=== PATIENT | male | born 1990 ===

== ENCOUNTER 2017-05-12 09:13 | Emergency (ER) | payer SELFPAY ==
[~2017-05-12 09:13] MED LIST: BACT800T5 PO; DOXY100C PO
[2017-05-12 09:17] VITALS: BP 111/57; PULSE 136; RESP 20; TEMP 97.7; O2SAT 95
[2017-05-12] MEDS ORDERED: SODIUM CHLOR 0.9% 1000 ML INJ 1,000 ML IV SCH (09:24)
[2017-05-12] MEDS ORDERED: methylPREDNISolone SOD SUCC 125 MG/2 ML VIAL IM ONE (09:30)
[2017-05-12] MEDS ORDERED: FAMOTIDINE 20 MG/2 ML VIAL IV PUSH ONE (09:30)
[2017-05-12] MEDS ORDERED: EPINEPHrine HCL (1:1000) 1 MG/ML VIAL IM ONE (09:30)
[2017-05-12] MEDS ORDERED: SODIUM CHLORIDE 0.9% FLUSH 10 ML FLUSH IV FLUSH PRN (09:30)
[2017-05-12] MEDS ORDERED: diphenhydrAMINE HCL 50 MG/ML VIAL IVP ONE (09:30)
[2017-05-12 09:35] VITALS: O2SAT 100
--- NOTE | 2017-05-12 09:40 | PD ---
HPI Chief Complaint: Allergic/Adverse Reaction Time Seen by Provider: 09:22 Travel History International Travel<30 days: No Contact w/Intl Traveler<30days: No Traveled to known affect area: No History of Present Illness HPI 26-year-old male presents emergency department with acute allergic reaction starting approximately 1 hour prior to arrival here. Patient states he started doxycycline 2 days ago for a chlamydial infection, but feels that this is not due to the medication but more likely a fruit smoothie that he had earlier this morning. He has no history of specific allergies in the past but has had hives previously. Patient did take 2 Benadryl prior to arrival with some improvement according to the patient. Patient does have generalized itching and rash. PFSH Past Medical History Diminished Hearing: No Immunizations Current: No Social History Alcohol Use: Yes (SELDOM) Tobacco Use: Yes (4 CIGS A DAY) Substance Use: Yes (MARIJUANA DAILY) Allergies-Medications (Allergen,Severity, Reaction): Coded Allergies: No Known Allergies (Unverified , 05/09/17) Reported Meds & Prescriptions Reported Meds & Active Scripts Active Epinephrine Inj (Epinephrine) 0.15 Mg/0.3 Ml Inj 0.15 Mg IM DIRECTED Ranitidine (Ranitidine HCl) 150 Mg Tab 150 Mg PO BID Diphenhydramine (Diphenhydramine HCl) 25 Mg Cap 25 Mg PO Q6H PRN Prednisone (21) 10 mg tab Dose Pack (Prednisone) 10 Mg Pack 10 Mg PO DIRECTED Doxycycline Hyclate 100 Mg Cap 100 Mg PO BID 10 Days Physical Exam Narrative GENERAL: Patient appears somewhat anxious but is speaking in full sentences SKIN: Warm and dry. Patient is generalized erythematous rash without hives. HEAD: Atraumatic. Normocephalic. EYES: Pupils equal and round. No scleral icterus. No injection or drainage. ENT: No nasal bleeding or discharge. Mucous membranes pink and moist. NECK: Trachea midline. No JVD. CARDIOVASCULAR: Regular rate and rhythm. RESPIRATORY: No accessory muscle use. Clear to auscultation. Breath sounds equal bilaterally. GASTROINTESTINAL: Abdomen soft, non-tender, nondistended. Hepatic and splenic margins not palpable. MUSCULOSKELETAL: Extremities without clubbing, cyanosis, or edema. No obvious deformities. NEUROLOGICAL: Awake and alert. No obvious cranial nerve deficits. Motor grossly within normal limits. Five out of 5 muscle strength in the arms and legs. Normal speech. PSYCHIATRIC: Appropriate mood and affect; insight and judgment normal. Data Data Last Documented VS Vital Signs Date Time Temp Pulse Resp B/P (MAP) Pulse Ox O2 Delivery O2 Flow Rate FiO2 05/12/17 09:17 97.7 136 20 111/57 (75) 95 Orders Orders Basic Metabolic Panel (Bmp) (05/12/17 09:24) Complete Blood Count With Diff (05/12/17 09:24) Ecg Monitoring (05/12/17 09:24) Iv Access Insert/Monitor (05/12/17 09:24) Oximetry (05/12/17 09:24) Diphenhydramine Inj (Benadryl Inj) (05/12/17 09:30) Methylprednisolone So Succ Inj (Solumedr (05/12/17 09:30) Famotidine Inj (Pepcid Inj) (05/12/17 09:30) Sodium Chlor 0.9% 1000 Ml Inj (Ns 1000 M (05/12/17 09:24) Sodium Chloride 0.9% Flush (Ns Flush) (05/12/17 09:30) Epinephrine (1:1000) Inj (Adrenalin (1:1 (05/12/17 09:30) Azithromycin (Zithromax) (05/12/17 10:30) Labs Laboratory Tests Test 05/12/17 09:50 White Blood Count 9.4 TH/MM3 Red Blood Count 6.33 MIL/MM3 Hemoglobin 18.8 GM/DL Hematocrit 54.8 % Mean Corpuscular Volume 86.5 FL Mean Corpuscular Hemoglobin 29.6 PG Mean Corpuscular Hemoglobin Concent 34.3 % Red Cell Distribution Width 13.2 % Platelet Count 282 TH/MM3 Mean Platelet Volume 8.5 FL Neutrophils (%) (Auto) 49.3 % Lymphocytes (%) (Auto) 44.9 % Monocytes (%) (Auto) 5.0 % Eosinophils (%) (Auto) 0.5 % Basophils (%) (Auto) 0.3 % Neutrophils # (Auto) 4.7 TH/MM3 Lymphocytes # (Auto) 4.2 TH/MM3 Monocytes # (Auto) 0.5 TH/MM3 Eosinophils # (Auto) 0.1 TH/MM3 Basophils # (Auto) 0.0 TH/MM3 CBC Comment DIFF FINAL Differential Comment Blood Urea Nitrogen 17 MG/DL Creatinine 0.99 MG/DL Random Glucose 113 MG/DL Calcium Level 8.6 MG/DL Sodium Level 139 MEQ/L Potassium Level 4.1 MEQ/L Chloride Level 107 MEQ/L Carbon Dioxide Level 24.6 MEQ/L Anion Gap 7 MEQ/L Estimat Glomerular Filtration Rate 91 ML/MIN [facility] Medical Decision Making Medical Screen Exam Complete: Yes Emergency Medical Condition: Yes Differential Diagnosis Allergic reaction. Hives. History of chlamydia Narrative Course Patient is medically stable at time of exam. IV access is obtained, and the patient is given 50 mg diphenhydramine IV, 125 mg Solu-Medrol IV, and 40 mg Pepcid IV. CBC and BMP are ordered. After the above treatment, the patient is much improved. Epinephrine was not necessary. CBC showed no significant leukocytosis. BMP is unremarkable. Patient is to discontinue doxycycline. Patient is given 2 g of azithromycin instead. Patient will be continued on prednisone Dosepak as prescribed. Patient continued on ranitidine 150 mg twice daily for 2 weeks. Patient to continue diphenhydramine 25 mg every 6 hours. Patient is given an EpiPen to be used if symptoms worsen as directed. Patient to follow-up with local primary care physician and/or sleeping room cleaner to determine his allergy. Patient should return to emergency department immediately with worsening symptoms if necessary. Diagnosis Primary Impression: Allergic reaction Qualified Codes: T78.40XA - Allergy, unspecified, initial encounter Patient Instructions: Allergies (ED), Anaphylaxis (ED), Epinephrine (By injection), General Instructions, Prednisolone (By mouth) Departure Forms: Work Release Enter return to work date: May 13, 2017 Additional Instructions: Patient is to discontinue doxycycline. Patient is given 2 g of azithromycin instead. Patient will be continued on prednisone Dosepak as prescribed. Patient continued on ranitidine 150 mg twice daily for 2 weeks. Patient to continue diphenhydramine 25 mg every 6 hours. Patient is given an EpiPen to be used if symptoms worsen as directed. Patient to follow-up with local primary care physician and/or sleeping room cleaner to determine his allergy. Patient should return to emergency department immediately with worsening symptoms if necessary. Med/Other Pt SpecificInfo: Prescription(s) given Scripts Epinephrine Inj (Epinephrine Inj) 0.15 Mg/0.3 Ml Inj 0.15 MG IM DIRECTED for Allergic Reaction, #1 INJECTION 0 Refills Prov: Concetta Katz MD 05/12/17 Ranitidine (Ranitidine) 150 Mg Tab 150 MG PO BID for Heartburn Management, #30 TAB 0 Refills Prov: Concetta Katz MD 05/12/17 Diphenhydramine (Diphenhydramine) 25 Mg Cap 25 MG PO Q6H Y for ALLERGIES, #60 CAP 0 Refills Prov: Concetta Katz MD 05/12/17 Prednisone (21) 10 mg tab Dose Pack (Prednisone (21) 10 mg tab Dose Pack) 10 Mg Pack 10 MG PO DIRECTED for Inflammation, #1 DSPK 0 Refills Prov: Concetta Katz MD 05/12/17 Disposition: 01 DISCHARGE HOME Condition: Stable Sid William May 12, 2017 09:40
--- NOTE | 2017-05-12 09:43 | PD ---
Physical Exam Narrative I, Dr. Katz, have reviewed the advance practice practitioner's documentation and am in agreement, met with the patient face to face, made the diagnosis, and the medical decision making was done by me. *My assessment and Findings: Patient is a 26 year old male who comes in complaining of an allergic reaction. He says it started after eating a smoothie, but he is not exactly sure what was in it. He is also taking Doxycycline and is on day 2. He says he has itching, congestion and swelling of his lips. He took benadryl before coming in. Exam shows minimal swelling of the lips. There is no uvular swelling, lungs are CTA. Data Data Last Documented VS Vital Signs Date Time Temp Pulse Resp B/P (MAP) Pulse Ox O2 Delivery O2 Flow Rate FiO2 05/12/17 09:17 97.7 136 20 111/57 (75) 95 Orders Orders Basic Metabolic Panel (Bmp) (05/12/17 09:24) Complete Blood Count With Diff (05/12/17:24) Ecg Monitoring (05/12/17:24) Iv Access Insert/Monitor (05/12/17:24) Oximetry (05/12/17:24) Diphenhydramine Inj (Benadryl Inj) (05/12/17 09:30) Methylprednisolone So Succ Inj (Solumedr (05/12/17 09:30) Famotidine Inj (Pepcid Inj) (05/12/17 09:30) Sodium Chlor 0.9% 1000 Ml Inj (Ns 1000 M (05/12/17 09:24) Sodium Chloride 0.9% Flush (Ns Flush) (05/12/17 09:30) Epinephrine (1:1000) Inj (Adrenalin (1:1 (05/12/17 09:30) Azithromycin (Zithromax) (05/12/17 10:30) Labs Laboratory Tests Test 05/12/17 09:50 White Blood Count 9.4 TH/MM3 Red Blood Count 6.33 MIL/MM3 Hemoglobin 18.8 GM/DL Hematocrit 54.8 % Mean Corpuscular Volume 86.5 FL Mean Corpuscular Hemoglobin 29.6 PG Mean Corpuscular Hemoglobin Concent 34.3 % Red Cell Distribution Width 13.2 % Platelet Count 282 TH/MM3 Mean Platelet Volume 8.5 FL Neutrophils (%) (Auto) 49.3 % Lymphocytes (%) (Auto) 44.9 % Monocytes (%) (Auto) 5.0 % Eosinophils (%) (Auto) 0.5 % Basophils (%) (Auto) 0.3 % Neutrophils # (Auto) 4.7 TH/MM3 Lymphocytes # (Auto) 4.2 TH/MM3 Monocytes # (Auto) 0.5 TH/MM3 Eosinophils # (Auto) 0.1 TH/MM3 Basophils # (Auto) 0.0 TH/MM3 CBC Comment DIFF FINAL Differential Comment Blood Urea Nitrogen 17 MG/DL Creatinine 0.99 MG/DL Random Glucose 113 MG/DL Calcium Level 8.6 MG/DL Sodium Level 139 MEQ/L Potassium Level 4.1 MEQ/L Chloride Level 107 MEQ/L Carbon Dioxide Level 24.6 MEQ/L Anion Gap 7 MEQ/L Estimat Glomerular Filtration Rate 91 ML/MIN MDM Supervised Visit with RAYNA: Yes Narrative Course Patient given solumedrol and additional benadryl. Observed in the ED with improvement of his symptoms and no airway issues. Given Azithromycin for chlamydia treatment and advised to stop the doxycycline. Discharged with prescriptions for solumedrol, epi pen, zantac. Advised to return at any time for any worsening symptoms. Diagnosis Primary Impression: Allergic reaction Qualified Codes: T78.40XA - Allergy, unspecified, initial encounter Scripts Epinephrine Inj (Epinephrine Inj) 0.15 Mg/0.3 Ml Inj 0.15 MG IM DIRECTED for Allergic Reaction, #1 INJECTION 0 Refills Prov: Concetta Katz MD 05/12/17 Ranitidine (Ranitidine) 150 Mg Tab 150 MG PO BID for Heartburn Management, #30 TAB 0 Refills Prov: Concetta Katz MD 05/12/17 Diphenhydramine (Diphenhydramine) 25 Mg Cap 25 MG PO Q6H Y for ALLERGIES, #60 CAP 0 Refills Prov: Concetta Katz MD 05/12/17 Prednisone (21) 10 mg tab Dose Pack (Prednisone (21) 10 mg tab Dose Pack) 10 Mg Pack 10 MG PO DIRECTED for Inflammation, #1 DSPK 0 Refills Prov: Concetta Katz MD 05/12/17 Concetta Katz MD May 12, 2017 09:43
[2017-05-12 10:17] LABS: AUTOMATED NEUTROPHIL # 4.7 TH/MM3 (1.8-7.7); BASOPHIL % 0.3 % (0.0-2.0); EOSINOPHIL # 0.1 TH/MM3 (0-0.4); EOSINOPHIL % 0.5 % (0.0-4.0); HEMATOCRIT 54.8 % (39.0-51.0); HEMOGLOBIN 18.8 GM/DL (13.0-17.0); LYMPH % 44.9 % (9.0-44.0); LYMPHOCYTE # 4.2 TH/MM3 (1.0-4.8); MEAN CELL VOLUME 86.5 FL (80.0-100.0); MEAN CORPUSCULAR HEMOGLOBIN 29.6 PG (27.0-34.0); MEAN CORPUSCULAR HGB CONC 34.3 % (32.0-36.0); MEAN PLATELET VOLUME 8.5 FL (7.0-11.0); MONOCYTE # 0.5 TH/MM3 (0-0.9); NEUT % 49.3 % (16.0-70.0); PLATELET COUNT 282 TH/MM3 (150-450); RED BLOOD COUNT 6.33 MIL/MM3 (4.50-5.90); RED CELL DISTRIBUTION WIDTH 13.2 % (11.6-17.2); WHITE BLOOD COUNT 9.4 TH/MM3 (4.0-11.0)
[2017-05-12] MEDS ORDERED: AZITHROMYCIN 250 MG TAB PO ONE (10:30)
[2017-05-12 10:34] LABS: BICARBONATE 24.6 MEQ/L (21.0-32.0); CALCIUM 8.6 MG/DL (8.5-10.1); CREATININE 0.99 MG/DL (0.60-1.30)
[2017-05-12] MEDS ORDERED: PRED10PA PO (10:34)
[2017-05-12] MEDS ORDERED: RANI150T PO (10:34)
[2017-05-12] MEDS ORDERED: DIPH25CA PO (10:34)
[2017-05-12] MEDS ORDERED: EPIN1INJ24 IM (10:34)
[2017-05-12 11:47] VITALS: BP 115/71
== END 2017-05-12 11:52 | disposition home or self-care (01) ==
LOC: NEPD 09:13 → MERGE 09:13 → NEPD 11:52
DX: T78.40XA Allergy, unspecified, initial encounter (principal); F17.210 Nicotine dependence, cigarettes, uncomplicated; F12.90 Cannabis use, unspecified, uncomplicated
CPT/HCPCS: 80048; 85025; 96372; 96374; 96375; 99284; J1200; J2930; J7030